=== PATIENT | female | born 1975 | race Caucasian/White ===

== ENCOUNTER 2017-03-08 19:44 | Emergency (ER) | payer MEDICAID ==
[~2017-03-08] VITALS: Ht 154.9 cm; Wt 70.8 kg
[2017-03-08] MEDS ORDERED: PANTOPRAZOLE SODIUM 40 MG TABLET.DR PO ONE ×2 (22:00→22:11)
[2017-03-08] MEDS ORDERED: LIDOCAINE VISCUS 2% 15 ML UDC MM ONE (22:00)
[2017-03-08] MEDS ORDERED: MAG HYDROX/AL HYDROX/SIMETH 30 ML LIQUID UDC PO ONE (22:00)
[2017-03-08] MEDS ORDERED: MAG HYDROX/AL HYDROX/SIMETH 30 ML LIQUID UDC ONE (22:11)
[2017-03-08] MEDS ORDERED: LIDOCAINE VISCUS 2% 15 ML UDC ONE (22:11)
[2017-03-09] MEDS ORDERED: HYDROCODONE/APAP 5-325MG TABLET PO ONE (00:15)
[2017-03-09] MEDS ORDERED: HYDROCODONE/APAP 5-325MG TABLET ONE (00:24)
--- NOTE | 2017-03-09 00:38 | NUR ---
Patient discharged to home in stable conditon. Written and verbal after care instructions given. Patient verbalizes understanding of instructions.
== END 2017-03-09 00:44 | disposition home or self-care (01) ==
LOC: ER 19:44
DX: J02.9 Acute pharyngitis, unspecified (principal); K21.9 Gastro-esophageal reflux disease without esophagitis; Z85.42 Personal history of malignant neoplasm of other parts of uterus; Z90.710 Acquired absence of both cervix and uterus
CPT/HCPCS: 36415; 71010; 86403; 87070; 93005; A4663